=== PATIENT | female | born 1975 | race Caucasian/White ===

== ENCOUNTER 2016-07-03 11:48 | Emergency (ER) | payer MEDICAID ==
--- NOTE | 2016-07-03 11:55 | EDPHY ---
H & P Stated Complaint: Lap hyst Jun 10 at [facility];vag bleeding x 1 wk (spotting today ) HPI/ROS: HPI CHIEF COMPLAINT: vaginal bleeding, pelvic pain, status post hysterectomy HISTORY OF PRESENT ILLNESS: This patient very pleasant 41-year-old female significant past medical history for pulmonary embolism on Xarelto, she presents to the emergency room for pelvic pain and vaginal bleeding. Patient states that on June 10 she had a laparoscopic hysterectomy by Dr. Ahumada at [facility]. This was then subsequently complicated by pulmonary embolism. She is on Xarelto. She presents to the emergency room today with vaginal bleeding that she describes as light spotting. Patient tells me that she did have vaginal bleeding after laparoscopic hysterectomy however this resolved and then on Friday she developed significant vaginal bleeding with 1 pad per hour it has since decreased. She now only complains of light vaginal spotting. She also complains of lower pelvic cramping and pain. She is out of pain medicine status post her surgery. She did call her OBGYN could not get an appointment with them so decided come here to the emergency room Past Medical History: Pulmonary embolisms on Xarelto Past Surgical History: Recent laparoscopic hysterectomy Social History: Denies use of drugs alcohol tobacco products Family History: noncontributory ROS REVIEW OF SYSTEMS: A comprehensive 10 point review of systems is otherwise negative aside from elements mentioned in the history of present illness. Exam Constitutional triage nursing summary reviewed, vital signs reviewed, awake/ alert. Eyes normal conjunctivae and sclera, EOMI, PERRLA. HENT normal inspection, atraumatic, moist mucus membranes, no epistaxis, neck supple/ no meningismus, no raccoon eyes. Respiratory clear to auscultation bilaterally, normal breath sounds, no respiratory distress, no wheezing. Cardiovascular rate normal, regular rhythm, no murmur, no edema, distal pulses normal. Gastrointestinal very mild tenderness to palpation suprapubic region, soft, no rebound, no guarding, normal bowel sounds, no distension, no pulsatile mass. Genitourinary no CVA tenderness. Musculoskeletal no midline vertebral tenderness, full range of motion, no calf swelling, no tenderness of extremities, no meningismus, good pulses, neurovascularly intact. Skin pink, warm, & dry, no rash, skin atraumatic. Neurologic awake, alert and oriented x 3, AAOx3, moves all 4 extremities equally, motor intact, sensory intact, CN II-XII intact, normal cerebellar, normal vision, normal speech. Psychiatric normal mood/affect. Heme/Lymph/Immune no lymphadenopathy. Differential Diagnosis: Includes but is not limited to in a particular order dysfunctional bleeding, cervical cuff bleeding on Xarelto, anemia Medical Decision Making: This patient had an IV established will obtain blood work including coags, check an H&H, she will be placed on full monitor. She received IV fluids, nausea medicine pain medicine. Will do a pelvic ultrasound. Re-evaluation: Ultrasound of the pelvis. The results of the study are this shows small amount of free fluid at the vaginal cuff otherwise unremarkable. There is an incidental finding as well in the right rectus month muscle there is a mass it could be a desmoid tumor. I discussed the results of this study with the radiologist Dr. Moore. 1408: re-evaluation at this time this patient is resting comfortably no acute distress. Ultrasound has been reviewed. Blood work reviewed. H&H stable. She has not had any significant vaginal bleeding here. Will touch base with her OBGYN for follow-up. She is on Xarelto her INR is 2.0. This may be contributing to her vaginal bleeding she is hemodynamically stable not having any brisk bleeding here. 1435: I did re-evaluate this patient she is resting comfortably no for evidence of significant bleeding here. I did go over her ultrasound results. She understands follow-up with her OBGYN. She also understands she has brisk vaginal bleeding more than 1 pad per hour given that she is on Xarelto she needs return immediately to the ER. Blood work has been reviewed her INR is 2. H&H were stable. Her blood pressure stable. No evidence of significant bleeding here. She is agreeable for discharge. Spoke with Dr. Key they plan on seeing this patient tomorrow. Given that she is hemodynamically stable and having no active bleeding or hemorrhaging they feel comfortable allowing her going home with follow up in clinic tomorrow with Dr. Ahumada. Patient does understand return to the ER she develops worsening symptoms questions or concerns. Source: Patient - Personal History LMP (Females 10-55): Hysterectomy Current Tetanus Diphtheria and Acellular Pertussis (TDAP): Yes Tetanus Vaccine Date: 2006 - Medical/Surgical History Hx Asthma: Yes Hx Chronic Respiratory Disease: No Hx Diabetes: No Hx Cardiac Disease: No Hx Renal Disease: No Hx Cirrhosis: No Hx Alcoholism: No Hx HIV/AIDS: No Hx Splenectomy or Spleen Trauma: No Other PMH: PMH: asthma, pulmonary embolism; ovarian cysts, anxiety. PSH: c- sectionsx2, jaw. Lap hyst 06/10/16 - Social History Smoking Status: Former smoker Constitutional: Initial Vital Signs Temperature (C) 37.1 C 07/03/16 11:49 Heart Rate 92 07/03/16 11:49 Respiratory Rate 18 07/03/16 11:49 Blood Pressure 141/88 H 07/03/16 11:49 O2 Sat (%) 98 07/03/16 11:49 O2 Delivery Mode Room Air Allergies/Adverse Reactions: hydrocodone bitartrate [From Vicodin] Allergy (Severe, Verified 07/03/16 11:49) itching, sob Penicillins Allergy (Mild, Verified 07/03/16 11:49) Unknown pneumococcal vaccine [Pneumococcal Vaccine] Allergy (Verified 07/03/16 11:49) FLU VACCINE Allergy (Uncoded 01/03/15 01:32) Home Medications: Medication Instructions Recorded Albuterol [Proventil Inhaler HFA 1 - 2 puffs IH Q4 PRN 05/20/12 (*)] Citalopram Hydrobromide 40 mg PO DAILY 05/22/12 [Citalopram HBr 40 MG] Rivaroxaban [Xarelto 10mg (*)] 10 mg PO 07/03/16 oxyCODONE/APAP 5/325 [Percocet 1 - 2 tab PO Q4H PRN #20 tab 07/03/16 5/325 (*)] Medical Decision Making - Data Points Laboratory Results: Laboratory Results 07/03/16 12:05 07/03/16 12:05 07/03/16 12:05 WBC 5.82 10^3/uL (3.80-9.50) RBC 4.48 10^6/uL (4.18-5.33) Hgb 14.2 g/dL (12.6-16.3) Hct 41.1 % (38.0-47.0) MCV 91.7 fL (81.5-99.8) MCH 31.7 pg (27.9-34.1) MCHC 34.5 g/dL (32.4-36.7) RDW 12.2 % (11.5-15.2) Plt Count 290 10^3/uL (150-400) MPV 9.2 fL (8.7-11.7) Neut % (Auto) 58.6 % (39.3-74.2) Lymph % (Auto) 28.5 % (15.0-45.0) Rice % (Auto) 6.7 % (4.5-13.0) Eos % (Auto) 4.8 % (0.6-7.6) Baso % (Auto) 0.9 % (0.3-1.7) Nucleat RBC Rel Count 0.0 % (0.0-0.2) Absolute Neuts (auto) 3.41 10^3/uL (1.70-6.50) Absolute Lymphs (auto) 1.66 10^3/uL (1.00-3.00) Absolute Monos (auto) 0.39 10^3/uL (0.30-0.80) Absolute Eos (auto) 0.28 10^3/uL (0.03-0.40) Absolute Basos (auto) 0.05 10^3/uL (0.02-0.10) Absolute Nucleated RBC 0.00 10^3/uL (0-0.01) Immature Gran % 0.5 % (0.0-1.1) Immature Gran # 0.03 10^3/uL (0.00-0.10) PT 23.6 H SEC (12.0-15.0) INR 2.09 H (0.83-1.16) APTT 38.1 H SEC (23.0-38.0) Sodium 142 mEq/L (134-144) Potassium 3.8 mEq/L (3.5-5.2) Chloride 105 mEq/L (97-110) Carbon Dioxide 27 mEq/l (22-31) Anion Gap 10 mEq/L (8-16) BUN 9 mg/dL (7-23) Creatinine 0.7 mg/dL (0.6-1.0) Estimated GFR > 60 Glucose 78 mg/dL (70-100) Calcium 9.1 mg/dL (8.5-10.4) Urine Color PALE YELLOW Urine Appearance CLEAR Urine pH 6.0 (5.0-7.5) Ur Specific Meno 1.004 (1.002-1.030) Urine Protein NEGATIVE (NEGATIVE) Urine Ketones NEGATIVE (NEGATIVE) Urine Blood 1+ H (NEGATIVE) Urine Nitrate NEGATIVE (NEGATIVE) Urine Bilirubin NEGATIVE (NEGATIVE) Urine Urobilinogen NEGATIVE EU (0.2-1.0) Ur Leukocyte Esterase NEGATIVE (NEGATIVE) Urine RBC 1-3 /hpf (0-3) Urine WBC 1-3 /hpf (0-3) Ur Epithelial Cells TRACE /lpf (NONE-1+) Urine Bacteria 2+ H /hpf (NONE SEEN) Urine Mucus TRACE /lpf (NONE-1+) Ur Culture Indicated? NOT INDICATED (NI) Urine Glucose NEGATIVE (NEGATIVE) Medications Given: Discontinued Medications Fentanyl (Sublimaze) 50 mcg IVP EDNOW ONE Stop: 07/03/16 12:04 Last Admin: 07/03/16 12:32 Dose: 50 mcg Hydromorphone HCl (Dilaudid) 0.5 mg IVP EDNOW ONE Stop: 07/03/16 12:51 Last Admin: 07/03/16 12:57 Dose: 0.5 mg Sodium Chloride (Ns) 1,000 mls @ 0 mls/hr IV ONCE ONE PRN Reason: Wide Open Stop: 07/03/16 12:04 Last Admin: 07/03/16 12:32 Dose: 1,000 mls Ondansetron HCl (Zofran) 4 mg IVP EDNOW ONE Stop: 07/03/16 12:34 Last Admin: 07/03/16 12:50 Dose: 4 mg Departure - Departure Disposition: Home, Routine, Self-Care Clinical Impression: Vaginal bleeding, Pelvic pain Condition: Good Instructions: Pelvic Pain in Women (ED) Additional Instructions: 1. Return to the emergency room if he develops any worsening symptoms questions or concerns . 2. I do recommend that he follow up with her OBGYN. Referrals: Amy Durand DO [Primary Care Provider] - As per Instructions Prescriptions: oxyCODONE/APAP 5/325 [Percocet 5/325 (*)] 1 - 2 tab PO Q4H PRN #20 tab PRN Reason: Pain, Severe
[2016-07-03] MEDS ORDERED: fentaNYL 100 MCG/2 ML INJ IVP ONE (12:03)
[2016-07-03] MEDS ORDERED: NS 1,000 ML IV ONE (12:03)
[2016-07-03 12:25] LABS: % IMMATURE GRANULYOCYTES 0.5 % (0.0-1.1); ABSOLUTE IMMATURE GRANULOCYTES 0.03 10^3/uL (0.00-0.10); ADD DIFF? NO; ADD MORPH? NO; ADD SCAN? NO; ATYPICAL LYMPHOCYTE FLAG 10 (0-99); FRAGMENT RBC FLAG 0 (0-99); HEMATOCRIT 41.1 % (38.0-47.0); HEMOGLOBIN 14.2 g/dL (12.6-16.3); LEFT SHIFT FLG 0 (0-99); LIPEMIA HEMOLYSIS FLAG 90 (0-99); MEAN CELL HEMOGLOBIN 31.7 pg (27.9-34.1); MEAN CELL HEMOGLOBIN CONCENTR. 34.5 g/dL (32.4-36.7); MEAN CELL VOLUME 91.7 fL (81.5-99.8); MEAN PLATELET VOLUME 9.2 fL (8.7-11.7); PLATELET CLUMPS FLAG 10 (0-99); PLATELET COUNT 290 10^3/uL (150-400); RED BLOOD CELL COUNT 4.48 10^6/uL (4.18-5.33); RED CELL DISTRIBUTION WIDTH 12.2 % (11.5-15.2)
[2016-07-03 12:27] LABS: COLOR PALE YELLOW; LEUKOCYTE ESTERASE,URINE NEGATIVE (NEGATIVE); NITRITE,URINE NEGATIVE (NEGATIVE)
[2016-07-03] MEDS ORDERED: ONDANSETRON 4 MG/2 ML VIAL ONE (12:27)
[2016-07-03] MEDS ORDERED: ONDANSETRON 4 MG/2 ML VIAL IVP ONE (12:33)
[2016-07-03 12:35] LABS: BACTERIA 2+ /hpf (NONE SEEN); MUCUS TRACE /lpf (NONE-1+)
[2016-07-03 12:38] LABS: INR 2.09 (0.83-1.16); PROTIME(PATIENT) 23.6 SEC (12.0-15.0)
[2016-07-03 12:39] LABS: APTT 38.1 SEC (23.0-38.0)
[2016-07-03 12:49] LABS: ANION GAP 10 mEq/L (8-16); CALCIUM 9.1 mg/dL (8.5-10.4); CARBON DIOXIDE 27 mEq/l (22-31); CHLORIDE 105 mEq/L (97-110); CREATININE 0.7 mg/dL (0.6-1.0); GLOMERULAR FILTRATION RATE > 60; GLUCOSE 78 mg/dL (70-100); POTASSIUM 3.8 mEq/L (3.5-5.2); SODIUM 142 mEq/L (134-144)
[2016-07-03] MEDS ORDERED: HYDROmorphONE/DILAUDID 1 MG/ML SYR IVP ONE (12:50)
--- NOTE | 2016-07-03 14:47 | US ---
Pelvic Ultrasound Indication: Vaginal bleeding. Recent vaginal hysterectomy. Technique: Transabdominal and transvaginal imaging. Comparison: Pelvic sonogram dated April 14, 2016. Findings: Transabdominal Imaging: The uterus is surgically absent. A hypoechoic soft tissue nodule with several small cysts along the periphery resides in the right rectus muscle anterior to the urinary bladder. Soft tissue measures 3.1 x 1.9 x 1.7 cm and has minimal internal blood flow on color Doppler imaging. Transvaginal Imaging: Trace simple free fluid resides at the apex of vaginal cuff. No organized fluid collection. The uterus is surgically absent. The right ovary is normal size with small peripheral follicles and normal blood flow on Color Doppler imaging. The right ovary measures 3.3 x 2.9 x 2.3 cm. Left ovary is not visualized. No adnexal mass . Impression: 1. Trace free fluid in the pelvis. No organized hematoma or fluid collection. 2. Normal right ovary. Left ovary is not visualized. 3. 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 Recommend [employer] follow up. Comment: Results were discussed with Dr. Joshua Sanchez shortly after study completion on July 03, 2016.
[2016-07-03 15:04] VITALS: BP 122/78; PULSE 84; RESP 14; TEMP 97.7; O2SAT 94
== END 2016-07-03 15:08 | disposition home or self-care (01) ==
DX: N93.8 Other specified abnormal uterine and vaginal bleeding (principal); R10.2 Pelvic and perineal pain; J45.909 Unspecified asthma, uncomplicated; Z87.891 Personal history of nicotine dependence; Z90.710 Acquired absence of both cervix and uterus; Z79.01 Long term (current) use of anticoagulants
CPT/HCPCS: 96374; J1170; J2405; J3010

== ENCOUNTER 2016-09-08 20:09 | Emergency (ER) | payer MEDICAID ==
[2016-09-08 20:15] VITALS: TEMP 96.8
[2016-09-08] MEDS ORDERED: METOCLOPRAMIDE 10 MG/2 ML VIAL IVP ONE (20:33)
--- NOTE | 2016-09-08 20:35 | EDPHY ---
H & P Stated Complaint: XIONG similar to hx migraines Time Seen by Provider: 09/08/16 20:25 HPI/ROS: CHIEF COMPLAINT: Headache HISTORY OF PRESENT ILLNESS: The patient presents to the ED with a 3 day history of headache. The patient states the headache feels like a typical migraine for her however it has lasted an uncharacteristic amount of time. The patient denies any history of fall or trauma. The patient is currently anticoagulated with Xarelto for history of PE. The patient did undergo a hysterectomy complicated by pulmonary embolism in June of this year. The patient denies asymmetric calf pain or swelling currently. The patient did have some pain in her legs earlier today which resolved. The patient does have a history of a neuropathic pain syndrome which was unexplained and self-limited earlier this year. The patient currently complains of a 5/10 headache. She denies focal numbness or weakness. The patient denies fever or infectious symptoms. REVIEW OF SYSTEMS: A comprehensive 10 point review of systems is otherwise negative aside from elements mentioned in the history of present illness. Source: Patient Exam Limitations: No limitations - Personal History LMP (Females 10-55): Hysterectomy Current Tetanus/Diphtheria Vaccine: No Current Tetanus Diphtheria and Acellular Pertussis (TDAP): No Tetanus Vaccine Date: 2006 - Medical/Surgical History Hx Asthma: Yes Hx Chronic Respiratory Disease: No Hx Diabetes: No Hx Cardiac Disease: No Hx Renal Disease: No Hx Cirrhosis: No Hx Alcoholism: No Hx HIV/AIDS: No Hx Splenectomy or Spleen Trauma: No Other PMH: PMH: asthma, pulmonary embolism x2; ovarian cysts, anxiety. PSH: c- sections x2, jaw, Lap hyst 06/10/16 - Social History Smoking Status: Former smoker - Physical Exam Exam: General Appearance: Alert, no distress Eyes: Pupils equal and round no pallor or injection ENT, Mouth: Mucous membranes moist Respiratory: There are no retractions, lungs are clear to auscultation Cardiovascular: Regular rate and rhythm Gastrointestinal: Abdomen is soft and nontender, no masses, bowel sounds normal Neurological: A&O, normal motor function, normal sensory exam, normal cranial nerves Skin: Warm and dry, no rashes Musculoskeletal: Neck is supple nontender, specifically no meningeal symptoms Extremities: symmetrical, full range of motion Constitutional: Initial Vital Signs Temperature (C) 36 C 09/08/16 20:10 Heart Rate 96 09/08/16 20:10 Respiratory Rate 18 09/08/16 20:10 O2 Sat (%) 96 09/08/16 20:10 O2 Delivery Mode Room Air Allergies/Adverse Reactions: hydrocodone bitartrate [From Vicodin] Allergy (Severe, Verified 07/03/16 11:49) itching, sob Penicillins Allergy (Mild, Verified 07/03/16 11:49) Unknown pneumococcal vaccine [Pneumococcal Vaccine] Allergy (Verified 07/03/16 11:49) FLU VACCINE Allergy (Uncoded 01/03/15 01:32) Home Medications: Medication Instructions Recorded Albuterol [Proventil Inhaler HFA 1 - 2 puffs IH Q4 PRN 05/20/12 (*)] Rivaroxaban [Xarelto 10mg (*)] 10 mg PO 07/03/16 Cymbalta 09/08/16 Medical Decision Making - Diagnostics Imaging: Imaging Impressions Head CT 09/08/16 20:33 Impression: Normal brain. No intracranial hemorrhage, mass, or sinus disease. Findings discussed with emergency department physician, Kevin Bartholomew MD on September 08, 2016 at 9:[address] head without contrast: Negative for acute intracranial hemorrhage or other explanation for headache. Images reviewed by myself and discussed with radiologist Dr. Jovan Moore. ED Course/Re-evaluation: The patient presents to the ED with symptoms consistent with a migraine however more severe and protracted than she typically has experienced. Given the severity and the fact she is anticoagulated, an emergent noncontrast head CT scan was ordered to exclude intracranial hemorrhage. The patient was taken for a stat CT scan which fortunately demonstrates no evidence of intracranial hemorrhage or other serious findings. The patient did have an IV established. She received IV Benadryl and Reglan for presumptive migraine syndrome. The patient is noted to be neurologically intact. She is afebrile without meningeal symptoms. The patient was re-evaluated at 10:30 p.m.. She reports her headache is entirely resolved. At this point time I do feel she can be discharged home with a resolved migraine headache. The patient is discharged home with customary aftercare instructions and return precautions. Differential Diagnosis: Differential diagnosis considered includes intracranial hemorrhage, meningitis, tension headache, migraine syndrome - Data Points Medications Given: Discontinued Medications Diphenhydramine HCl (Benadryl Injection) 50 mg IVP EDNOW ONE Stop: 04/09/17 20:34 Last Admin: 09/08/16 21:04 Dose: 50 mg Metoclopramide HCl (Reglan Injection) 10 mg IVP EDNOW ONE Stop: 09/08/16 20:34 Last Admin: 09/08/16 21:04 Dose: 10 mg Departure - Departure Disposition: Home, Routine, Self-Care Clinical Impression: Migraine Condition: Good Instructions: Acute Headache (ED) Additional Instructions: 1. Please follow-up with your primary care provider for any ongoing symptoms. 2. Please return to the ED for any numbness, weakness, worsening symptoms. Referrals: MONIQUE BRYAN [Other] - As per Instructions
[2016-09-08 22:06] VITALS: BP 122/82; PULSE 85; RESP 16; O2SAT 98
== END 2016-09-08 22:34 | disposition home or self-care (01) ==
DX: G43.909 Migraine, unspecified, not intractable, without status migrainosus (principal); J45.909 Unspecified asthma, uncomplicated; Z87.891 Personal history of nicotine dependence
CPT/HCPCS: 96374; J1200; J2765

== ENCOUNTER 2016-10-03 17:19 | Emergency (ER) | payer MEDICAID ==
--- NOTE | 2016-10-03 17:41 | CPEKG ---
Heart Rate: 96 RR Interval: 625 P-R Interval: 136 QRSD Interval: 82 QT Interval: 380 QTC Interval: 481 P Bushnell: 61 QRS Bushnell: -9 T Wave Bushnell: 53 EKG Severity - NORMAL ECG - EKG Impression: SINUS RHYTHM Electronically Signed By: Melquiades Wasserman 03-Oct-2016 20:26:03
--- NOTE | 2016-10-03 17:53 | EDPHY ---
H & P Stated Complaint: Chest tightness x 2 wks Time Seen by Provider: 10/03/16 17:53 - Personal History LMP (Females 10-55): Hysterectomy Current Tetanus Diphtheria and Acellular Pertussis (TDAP): Yes Tetanus Vaccine Date: 2006 - Medical/Surgical History Hx Asthma: Yes Hx Chronic Respiratory Disease: No Hx Diabetes: No Hx Cardiac Disease: No Hx Renal Disease: No Hx Cirrhosis: No Hx Alcoholism: No Hx HIV/AIDS: No Hx Splenectomy or Spleen Trauma: No Other PMH: PMH: asthma, pulmonary embolism x2; ovarian cysts, anxiety. PSH: c- sections x2, jaw, Lap hyst 06/10/16 - Social History Smoking Status: Former smoker Constitutional: Initial Vital Signs Temperature (C) 36.9 C 10/03/16 17:23 Heart Rate 96 10/03/16 17:23 Respiratory Rate 16 10/03/16 17:23 Blood Pressure 140/108 H 10/03/16 17:23 O2 Sat (%) 98 10/03/16 17:23 O2 Delivery Mode Room Air Allergies/Adverse Reactions: hydrocodone bitartrate [From Vicodin] Allergy (Intermediate, Verified 10/03/16 17:23) itching, sob Penicillins Allergy (Mild, Verified 10/03/16 17:23) Unknown pneumococcal vaccine [Pneumococcal Vaccine] Allergy (Verified 10/03/16 17:23) FLU VACCINE Allergy (Uncoded 01/03/15 01:32) Home Medications: Medication Instructions Recorded Albuterol [Proventil Inhaler HFA 1 - 2 puffs IH Q4 PRN 05/20/12 (*)] Rivaroxaban [Xarelto 10mg (*)] 10 mg PO 07/03/16 Cymbalta 09/08/16 Lisinopril 5 mg PO DAILY06 #30 tablet 10/03/16 Medical Decision Making - Diagnostics Imaging Results: Imaging Impressions Chest X-Ray 10/03/16 17:56 Impression: Stable x5 months. No indirect evidence for pulmonary embolism on the chest x-ray. ED Course/Re-evaluation: CHIEF COMPLAINT: Chest tightness, hypertension. HISTORY OF PRESENT ILLNESS: The patient is a 41-year-old female who presents with hypertension and intermittent chest tightness. She is currently anticoagulated on Xarelto for a history of pulmonary emboli. She was being seen at the cancer center for pulmonary embolism recheck and was sent here after her blood pressure was measured high. She admits feeling flushed and diaphoretic. She denies shortness of breath, cough, or other complaints. REVIEW OF SYSTEMS: A 10 point review of systems was performed and is negative with the exception of the elements mentioned in the history of present illness. PHYSICAL EXAM: HR, BP, O2 Sat, RR. Temp noted General Appearance: Alert, well hydrated, appropriate, and non-toxic appearing. Head: Atraumatic without scalp tenderness or obvious injury Eyes: Pupils equal, round, reactive to light and accommodation, EOMI, no trauma , no injection. Ears: Clear bilaterally, no perforation, normal landmarks Nose: Atraumatic, no rhinorrhea, clear. Throat: There is no erythema or exudates, no lesions, normal tonsils, mucus membranes moist. Neck: Supple, 2+ carotid upstroke, nontender, no lymphadenopathy. Respiratory: No retractions, no distress, no wheezes, and no accessory muscle use. Lungs are clear to auscultation bilaterally. Cardiovascular: Regular rate and rhythm, no murmurs, rubs, or gallops. Bilateral carotid, radial, dorsalis pedis, and posterior tibial pulses intact. Good capillary refill all extremities. Gastrointestinal: Abdomen is soft, nontender, non-distended, no masses, no rebound, no guarding, no peritoneal signs. Musculoskeletal: Normal active ROM of all extremities, atraumatic. Neurological: Alert, appropriate, and interactive. The patient has normal DTRs and non-focal cranial nerves, motor, sensory, and cerebellar exam. Skin: No rashes, good turgor, no nodules on palpation. Past medical history: Pulmonary embolism, asthma, anxiety. Past surgical history: Hysterectomy, . Family history: N/A. Social history: Does not abuse alcohol or drugs. DIAGNOSTICS/PROCEDURES/CRITICAL CARE TIME: The 12 lead EKG was interpreted by myself. See hard copy and/or "tracemaster" electronic copy for interpretation. Study: PA and Lateral Chest X-ray Indication: Chest pain Results: I viewed the images myself on the PACS system. See Image Reports section for official radiologist report. DIFFERENTIAL DIAGNOSIS: The differential diagnosis for the patient's chest pain included but was not limited to myocardial ischemia, pulmonary embolus, chest wall pain, pleural inflammation, and pulmonary infectious causes. MEDICAL DECISION MAKIN-year-old female with a history of PEs presents with chest tightness and hypertension. She is currently on Xarelto for PE treatment. She is complaining of hot flashes as well and I feel that there is a hormone component to her story. She had a hysterectomy but is not undergoing hormone replacement therapy due to her history of blood clots. Her blood pressure on presentation is 140/ 108. An IV was established and labs ordered including cardiac enzymes. EKG, chest x-ray ordered. Chest x-ray unchanged from 5 weeks prior. Her lab work is unremarkable. I have started her on 5mg Lisinopril. She will take her blood pressures twice per day and follow up with her primary care provider. I discussed this plan with her and she is in agreement. - Data Points Laboratory Results: Laboratory Results 10/03/16 17:45 10/03/16 Unknown 10/03/16 10/03/16 Unknown 17:45 WBC 6.57 10^3/uL 10^3/uL (3.80-9.50) RBC 4.55 10^6/uL 10^6/uL (4.18-5.33) Hgb 14.1 g/dL g/dL (12.6-16.3) Hct 40.5 % % (38.0-47.0) MCV 89.0 fL fL (81.5-99.8) MCH 31.0 pg pg (27.9-34.1) MCHC 34.8 g/dL g/dL (32.4-36.7) RDW 12.6 % % (11.5-15.2) Plt Count 251 10^3/uL 10^3/uL (150-400) MPV 9.2 fL fL (8.7-11.7) Neut % (Auto) 58.4 % % (39.3-74.2) Lymph % (Auto) 30.4 % % (15.0-45.0) Gladwin % (Auto) 8.5 % % (4.5-13.0) Eos % (Auto) 1.8 % % (0.6-7.6) Baso % (Auto) 0.6 % % (0.3-1.7) Nucleat RBC Rel Count 0.0 % % (0.0-0.2) Absolute Neuts (auto) 3.83 10^3/uL 10^3/uL (1.70-6.50) Absolute Lymphs (auto) 2.00 10^3/uL 10^3/uL (1.00-3.00) Absolute Monos (auto) 0.56 10^3/uL 10^3/uL (0.30-0.80) Absolute Eos (auto) 0.12 10^3/uL 10^3/uL (0.03-0.40) Absolute Basos (auto) 0.04 10^3/uL 10^3/uL (0.02-0.10) Absolute Nucleated RBC 0.00 10^3/uL 10^3/uL (0-0.01) Immature Gran % 0.3 % % (0.0-1.1) Immature Gran # 0.02 10^3/uL 10^3/uL (0.00-0.10) Sodium 139 mEq/L mEq/L (134-144) Potassium 3.7 mEq/L mEq/L (3.5-5.2) Chloride 104 mEq/L mEq/L (97-110) Carbon Dioxide 25 mEq/l mEq/l (22-31) Anion Gap 10 mEq/L mEq/L (8-16) BUN 9 mg/dL mg/dL (7-23) Creatinine 0.7 mg/dL mg/dL (0.6-1.0) Estimated GFR > 60 Glucose 84 mg/dL mg/dL (70-100) Calcium 9.6 mg/dL mg/dL (8.5-10.4) Troponin I < 0.012 ng/mL ng/mL (0-0.034) Departure - Departure Disposition: Home, Routine, Self-Care Clinical Impression: Hypertension Qualifiers: Hypertension type: unspecified secondary hypertension Qualified Code(s): I15.9 - Secondary hypertension, unspecified Condition: Good Instructions: Hypertension (ED) Additional Instructions: Take Lisinopril as prescribed. Take your blood pressure in the mornings and evenings and record the readings. Follow up with your primary care provider and provide them with the list of your blood pressures. Return for any serious worsening of condition. Referrals: CHOCO BRYAN [Other] - As per Instructions Prescriptions: Lisinopril 5 mg PO DAILY06 #30 tablet Report Scribed for: Melquiades Wasserman Report Scribed by: Rakesh Batres Date of Report: 10/03/16 Time of Report: 18:21
[2016-10-03 18:02] LABS: % IMMATURE GRANULYOCYTES 0.3 % (0.0-1.1); ABSOLUTE IMMATURE GRANULOCYTES 0.02 10^3/uL (0.00-0.10); ADD DIFF? NO; ADD MORPH? NO; ADD SCAN? NO; ATYPICAL LYMPHOCYTE FLAG 10 (0-99); FRAGMENT RBC FLAG 0 (0-99); HEMATOCRIT 40.5 % (38.0-47.0); HEMOGLOBIN 14.1 g/dL (12.6-16.3); LEFT SHIFT FLG 0 (0-99); LIPEMIA HEMOLYSIS FLAG 90 (0-99); MEAN CELL HEMOGLOBIN CONCENTR. 34.8 g/dL (32.4-36.7); MEAN PLATELET VOLUME 9.2 fL (8.7-11.7); PLATELET CLUMPS FLAG 0 (0-99); PLATELET COUNT 251 10^3/uL (150-400); RED BLOOD CELL COUNT 4.55 10^6/uL (4.18-5.33); RED CELL DISTRIBUTION WIDTH 12.6 % (11.5-15.2)
[2016-10-03 18:14] LABS: ANION GAP 10 mEq/L (8-16); CALCIUM 9.6 mg/dL (8.5-10.4); CARBON DIOXIDE 25 mEq/l (22-31); CHLORIDE 104 mEq/L (97-110); CREATININE 0.7 mg/dL (0.6-1.0); GLOMERULAR FILTRATION RATE > 60; GLUCOSE 84 mg/dL (70-100); POTASSIUM 3.7 mEq/L (3.5-5.2); SODIUM 139 mEq/L (134-144)
[2016-10-03 18:26] LABS: TROPONIN I < 0.012 ng/mL (0-0.034)
[2016-10-03 19:03] VITALS: BP 137/96; PULSE 96; RESP 18; TEMP 97.9; O2SAT 96
[2016-10-04] MEDS ORDERED: LISINOPRIL 5 MG TAB PO ONE (18:21)
== END 2016-10-03 19:03 | disposition home or self-care (01) ==
DX: I10 Essential (primary) hypertension (principal); J45.909 Unspecified asthma, uncomplicated; Z87.891 Personal history of nicotine dependence

== ENCOUNTER 2016-12-26 10:58 | Emergency (ER) | payer MEDICAID ==
--- NOTE | 2016-12-26 11:11 | EDPHY ---
H & P Stated Complaint: R posterior knee [place] after hiking x9 days; HX clots; +swelling , warm Time Seen by Provider: 12/26/16 11:04 HPI/ROS: CHIEF COMPLAINT: Right leg pain HISTORY OF PRESENT ILLNESS: Patient is a 41-year-old female with a history DVT currently on Eliquis as well as asthma and anxiety who comes to the emergency department requesting an ultrasound for pain in her posterior lower right thigh. No swelling or erythema. Normal pulses. No tingling. No weakness. She denies recent traumas. She switched from Xarelto to Eliquis about a month ago because she had fluid retention. She states that that has not improved. She denies chest pain or shortness of breath. REVIEW OF SYSTEMS: Constitutional: denies: chills, fever, recent illness, recent injury EENTM: denies: blurred vision, double vision, nose congestion Respiratory: denies: cough, shortness of breath Cardiac: denies: chest pain, irregular heart rate, lightheadedness, palpitations Gastrointestinal/Abdominal: denies: abdominal pain, diarrhea, nausea, vomiting, blood streaked stools Genitourinary: denies: dysuria, frequency, hematuria, pain Musculoskeletal: See HPI Skin: denies: lesions, rash, jaundice, bruising Neurological: denies: headache, numbness, paresthesia, tingling, dizziness, weakness Hematologic/Lymphatic: denies: blood clots, easy bleeding, easy bruising Immunologic/allergic: denies: HIV/AIDS, transplant EXAM: GENERAL: Well-appearing, well-nourished and in no acute distress. HEAD: Atraumatic, normocephalic. EYES: Pupils equal round and reactive to light, extraocular movements intact, sclera anicteric, conjunctiva are normal. ENT: TMs normal, nares patent, oropharynx clear without exudates. Moist mucous membranes. NECK: Normal range of motion, supple without lymphadenopathy or JVD. LUNGS: Breath sounds clear to auscultation bilaterally and equal. No wheezes rales or rhonchi. HEART: Regular rate and rhythm without murmurs, rubs or gallops. ABDOMEN: Soft, nontender, normoactive bowel sounds. No guarding, no rebound. No masses appreciated. BACK: No CVA tenderness, no spinal tenderness, step-offs or deformities EXTREMITIES: Pain behind right lower thigh, no tenderness. No erythema. No cords. Strong pulses. Normal sensation , movement and ambulation NEUROLOGICAL: Cranial nerves II through XII grossly intact. Normal speech, normal gait. 5/5 strength, normal movement in all extremities, normal sensation PSYCH: Normal mood, normal affect. SKIN: Warm, dry, normal turgor, no visible rashes or lesions. Source: Patient Exam Limitations: No limitations - Personal History LMP (Females 10-55): Hysterectomy Current Tetanus/Diphtheria Vaccine: Yes Tetanus Vaccine Date: 2006 - Medical/Surgical History Hx Asthma: Yes Hx Chronic Respiratory Disease: No Hx Diabetes: No Hx Cardiac Disease: No Hx Renal Disease: No Hx Cirrhosis: No Hx Alcoholism: No Hx HIV/AIDS: No Hx Splenectomy or Spleen Trauma: No Other PMH: PMH: asthma, pulmonary embolism; ovarian cysts, anxiety. PSH: c- sections x2, jaw, Lap hyst 06/10/16 - Family History Significant Family History: No pertinent family hx - Social History Smoking Status: Former smoker Alcohol Use: Sober Drug Use: None Constitutional: Initial Vital Signs Temperature (C) 36.9 C 12/26/16 11:02 Heart Rate 84 12/26/16 11:02 Respiratory Rate 18 12/26/16 11:02 Blood Pressure 120/85 H 12/26/16 11:02 O2 Sat (%) 98 12/26/16 11:02 Allergies/Adverse Reactions: hydrocodone bitartrate [From Vicodin] Allergy (Intermediate, Verified 12/26/16 11:06) itching, sob Penicillins Allergy (Mild, Verified 12/26/16 11:06) Unknown pneumococcal vaccine [Pneumococcal Vaccine] Allergy (Verified 12/26/16 11:06) FLU VACCINE Allergy (Uncoded 01/03/15 01:32) Home Medications: Medication Instructions Recorded Citalopram 12/26/16 Eliquis 12/26/16 Medical Decision Making - Diagnostics Imaging Results: Imaging Impressions Extremity Venous Study 12/26/16 11:09 Impression: No deep vein thrombosis in the right lower extremity. No source for pain identified. Results called and discussed with SUZANNE WARNER MD, at 12/26/2016 11:56 Imaging: Discussed imaging studies w/ callisthenics instructor Radiologist ED Course/Re-evaluation: Patient is relieved with the ultrasound results. She declines further workup or testing at this time. She is eager to go home. We discussed indications for returning. Differential Diagnosis: Partial list of the Differential diagnosis considered include but were not limited to; DVT, thrombophlebitis, Morse cyst and although unlikely based on the history and physical exam, I also considered cellulitis, hematoma, ischemia. I discussed these differential diagnoses and the plan with the patient as well as the usual and expected course. The patient understands that the diagnosis is provisional and that in medicine we are not always correct and that further workup is often warranted. Usual and customary warnings were given. All of the patient's questions were answered. The patient was instructed to return to the emergency department should the symptoms at all worsen or return, otherwise to followup with the physician as we discussed. Departure - Departure Disposition: Home, Routine, Self-Care Clinical Impression: Leg pain, right Condition: Fair Instructions: Leg Pain (ED) Referrals: [facility],. [Primary Care Provider] - As per Instructions
[2016-12-26 11:20] VITALS: BP 120/85; PULSE 84; RESP 18; TEMP 98.4; O2SAT 98
== END 2016-12-26 11:59 | disposition home or self-care (01) ==
LOC: CED 10:58
DX: M79.604 Pain in right leg (principal); J45.909 Unspecified asthma, uncomplicated; Z79.01 Long term (current) use of anticoagulants; Z87.891 Personal history of nicotine dependence
CPT/HCPCS: 93971-PO

== ENCOUNTER 2017-02-10 08:22 | Outpatient (CLI) | payer MEDICAID ==
[2017-02-10] MEDS ORDERED: LIDOCAINE 1% 300 MG/30 ML SDV ONE (09:17)
[2017-02-10] MEDS ORDERED: MIDAZOLAM 2 MG/2 ML VIAL ONE (09:45)
[2017-02-10] MEDS ORDERED: NALOXONE HCL 0.4 MG/ML INJ ONE (09:45)
[2017-02-10] MEDS ORDERED: FLUMAZENIL 0.5 MG/5 ML MDV IVP ONE (09:45)
[2017-02-10] MEDS ORDERED: fentaNYL 100 MCG/2 ML INJ ONE (09:45)
[2017-02-10 12:31] VITALS: BP 102/64; O2SAT 98
[2017-02-10 12:52] VITALS: TEMP 97.7
[2017-02-10] MEDS ORDERED: OXYCODONE/APAP 5/325 TAB ONE (13:21)
== END 2017-02-10 12:30 | disposition home or self-care (01) ==
LOC: FIMAGING 08:22
PROC: 0WBF3ZX Excision of Abdominal Wall, Percutaneous Approach, Diagnostic (ICD-10-PCS; principal; 2017-02-10 11:27)
PROC: BW40ZZZ Ultrasonography of Abdomen (ICD-10-PCS; principal; 2017-02-10 11:27)
DX: R22.2 Localized swelling, mass and lump, trunk (principal); I10 Essential (primary) hypertension; Z86.711 Personal history of pulmonary embolism; Z86.718 Personal history of other venous thrombosis and embolism
CPT/HCPCS: J2250; J2310; J3010

== ENCOUNTER 2017-06-17 17:03 | Emergency (ER) | payer MEDICAID ==
[2017-06-17 17:12] VITALS: O2SAT 100
--- NOTE | 2017-06-17 18:13 | CPEKG ---
Heart Rate: 106 RR Interval: 566 P-R Interval: 144 QRSD Interval: 82 QT Interval: 364 QTC Interval: 484 P [place]: 67 QRS [place]: -60 T Wave [place]: 62 EKG Severity - ABNORMAL ECG - EKG Impression: SINUS TACHYCARDIA EKG Impression: LEFT ANTERIOR FASCICULAR BLOCK EKG Impression: ABNRM R PROG, CONSIDER ASMI OR LEAD PLACEMENT EKG Impression: SINUS TACHYCARDIA IS NEW IN COMPARISON TO PRIOR (NSR) Electronically Signed By: Florentino Haddad 22-Jun-2017 10:36:53
[2017-06-17 18:33] LABS: PLATELET COUNT 262 10^3/uL (150-400)
--- NOTE | 2017-06-17 19:53 | EDPHY ---
H & P Stated Complaint: tachycardia, hypertension HPI/ROS: Chief complaint: Chest discomfort History of present illness: This is a 41-year-old female who presents to the emergency department for evaluation of chest discomfort. She reports the onset of symptoms approximately 2 hr prior to arrival. She describes a pressure in her chest and discomfort radiating into the left arm. She has developed associated racing of the heart. She took her blood pressure at a supermarket and noted it to be in the 170s over 110s. She does not have a history of high blood pressure. She is feeling better here in the emergency department but symptoms have not resolved. She denies other associated signs or symptoms including no fevers, no cold symptoms, no shortness of breath, no pain or swelling in her legs. 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 This does not feel similar to previous presentations. Review of systems: A 10 point review of systems was obtained and other than described above was negative - Personal History LMP (Females 10-55): Hysterectomy Current Tetanus/Diphtheria Vaccine: Unsure Current Tetanus Diphtheria and Acellular Pertussis (TDAP): Unsure Tetanus Vaccine Date: 2006 - Medical/Surgical History Hx Asthma: Yes Hx Chronic Respiratory Disease: No Hx Diabetes: No Hx Cardiac Disease: No Hx Renal Disease: No Hx Cirrhosis: No Hx Alcoholism: No Hx HIV/AIDS: No Hx Splenectomy or Spleen Trauma: No Other PMH: PMH: asthma, pulmonary embolism; ovarian cysts, anxiety. PSH: c- sections x2, jaw surgery, Lap hyst 06/10/16 - Social History Smoking Status: Former smoker - Physical Exam Exam: General Appearance: Alert, nontoxic. Eyes: Pupils equal and round no pallor or injection. ENT, Mouth: Mucous membranes moist. Respiratory: There are no retractions, lungs are clear to auscultation. Cardiovascular: Regular rate and rhythm. Gastrointestinal: Abdomen is soft and non tender, no masses, bowel sounds normal. Neurological: Alert and oriented x4. Strength and sensation intact and symmetrical. Skin: Warm and dry, no rashes. Musculoskeletal: Neck is supple non tender. Extremities are symmetrical, full range of motion. Psychiatric: Patient is oriented X 3, there is no agitation. Constitutional: Initial Vital Signs Temperature (C) 36.5 C 06/17/17 17:08 Heart Rate 98 06/17/17 17:08 Respiratory Rate 16 06/17/17 17:08 Blood Pressure 138/94 H 06/17/17 17:08 O2 Sat (%) 100 06/17/17 17:08 O2 Delivery Mode Room Air O2 (L/minute) 1 Allergies/Adverse Reactions: hydrocodone bitartrate [From Vicodin] Allergy (Intermediate, Verified 06/17/17 17:07) itching, sob Penicillins Allergy (Mild, Verified 06/17/17 17:07) Unknown pneumococcal vaccine [Pneumococcal Vaccine] Allergy (Verified 06/17/17 17:07) FLU VACCINE Allergy (Uncoded 06/17/17 17:07) Home Medications: Medication Instructions Recorded Aspirin 06/17/17 Lexapro 06/17/17 Vyvanse 06/17/17 Medical Decision Making - Diagnostics Imaging Results: Imaging Impressions Chest X-Ray 06/17/17 19:08 Impression: Chest negative for acute cardiopulmonary abnormality. Imaging: I viewed and interpreted images myself ED Course/Re-evaluation: Patient is discussed with my secondary supervising physician Dr. Gustavo Sanchez. Patient presents to the emergency department for evaluation of chest discomfort. Presentation she is nontoxic. Mildly hypertensive otherwise vital signs are stable. Blood studies including D-dimer and troponin are unremarkable. EKG unremarkable. Chest x-ray unremarkable. Symptoms have nearly resolved on re-evaluation. Vital signs are stable. She has a low risk heart pathway score. She will be discharged home to follow up with her primary care doctor this week for recheck. Strict return precautions are given. Patient voiced understanding and agreement with plan. Differential Diagnosis: Included but not limited to cardiac dysrhythmia, ACS, pulmonary embolism, anxiety, musculoskeletal pain, hypertensive emergency - Data Points Laboratory Results: Laboratory Results 06/17/17 18:12 06/17/17 18:12 06/17/17 06/17/17 06/17/17 18:12 18:12 18:12 WBC RBC Hgb Hct MCV MCH MCHC RDW Plt Count MPV Neut % (Auto) Lymph % (Auto) [place] % (Auto) Eos % (Auto) Baso % (Auto) Nucleat RBC Rel Count Absolute Neuts (auto) Absolute Lymphs (auto) Absolute Monos (auto) Absolute Eos (auto) Absolute Basos (auto) Absolute Nucleated RBC Immature Gran % Immature Gran # D-Dimer 0.34 ug/mLFEU ug/mLFEU (0.00-0.50) Sodium 142 mEq/L mEq/L (135-145) Potassium 3.8 mEq/L mEq/L (3.5-5.2) Chloride 102 mEq/L mEq/L (97-110) Carbon Dioxide 23 mEq/l mEq/l (22-31) Anion Gap 17 mEq/L H mEq/L (8-16) BUN 11 mg/dL mg/dL (7-23) Creatinine 0.8 mg/dL mg/dL (0.6-1.0) Estimated GFR > 60 Glucose 113 mg/dL H mg/dL (70-100) Calcium 10.1 mg/dL mg/dL (8.5-10.4) Troponin I < 0.012 ng/mL ng/mL (0.000-0.034) Beta HCG, Qual NEGATIVE 06/17/17 18:12 WBC 6.86 10^3/uL 10^3/uL (3.80-9.50) RBC 4.78 10^6/uL 10^6/uL (4.18-5.33) Hgb 15.5 g/dL g/dL (12.6-16.3) Hct 43.5 % % (38.0-47.0) MCV 91.0 fL fL (81.5-99.8) MCH 32.4 pg pg (27.9-34.1) MCHC 35.6 g/dL g/dL (32.4-36.7) RDW 12.6 % % (11.5-15.2) Plt Count 262 10^3/uL 10^3/uL (150-400) MPV 9.3 fL fL (8.7-11.7) Neut % (Auto) 57.7 % % (39.3-74.2) Lymph % (Auto) 31.5 % % (15.0-45.0) [place] % (Auto) 8.5 % % (4.5-13.0) Eos % (Auto) 1.6 % % (0.6-7.6) Baso % (Auto) 0.6 % % (0.3-1.7) Nucleat RBC Rel Count 0.0 % % (0.0-0.2) Absolute Neuts (auto) 3.96 10^3/uL 10^3/uL (1.70-6.50) Absolute Lymphs (auto) 2.16 10^3/uL 10^3/uL (1.00-3.00) Absolute Monos (auto) 0.58 10^3/uL 10^3/uL (0.30-0.80) Absolute Eos (auto) 0.11 10^3/uL 10^3/uL (0.03-0.40) Absolute Basos (auto) 0.04 10^3/uL 10^3/uL (0.02-0.10) Absolute Nucleated RBC 0.00 10^3/uL 10^3/uL (0-0.01) Immature Gran % 0.1 % % (0.0-1.1) Immature Gran # 0.01 10^3/uL 10^3/uL (0.00-0.10) D-Dimer Sodium Potassium Chloride Carbon Dioxide Anion Gap BUN Creatinine Estimated GFR Glucose Calcium Troponin I Beta HCG, Qual Departure - Departure Disposition: Home, Routine, Self-Care Clinical Impression: Chest pain, HTN (hypertension) Condition: Good Instructions: Chest Pain (ED) Additional Instructions: Follow-up with your primary care doctor in 1-2 days for recheck without fail If symptoms worsen or new symptoms develop return to the emergency room for recheck Referrals: Mehnaz Hinton [Primary Care Provider] - As per Instructions
[2017-06-17 20:02] VITALS: BP 118/87; PULSE 92; RESP 18; TEMP 98.6
== END 2017-06-17 20:01 | disposition home or self-care (01) ==
DX: R07.9 Chest pain, unspecified (principal); I10 Essential (primary) hypertension; J45.909 Unspecified asthma, uncomplicated; Z79.82 Long term (current) use of aspirin; Z87.891 Personal history of nicotine dependence

== ENCOUNTER → 2017-06-24 | Outpatient (CLI) | payer MEDICAID | LOC: FIMAGING 14:07 | PROVIDERS: ATTEND Physician Assistant Medical | DX: N64.4 Mastodynia (principal) ==

== ENCOUNTER 2017-08-12 10:06 | Emergency (ER) | payer MEDICAID ==
[2017-08-12 10:14] VITALS: TEMP 98.6
--- NOTE | 2017-08-12 10:22 | CPEKG ---
Heart Rate: 106 RR Interval: 566 P-R Interval: 176 QRSD Interval: 88 QT Interval: 360 QTC Interval: 479 P [place]: 68 QRS [place]: -57 T Wave [place]: 46 EKG Severity - ABNORMAL ECG - EKG Impression: SINUS TACHYCARDIA EKG Impression: LEFT ANTERIOR FASCICULAR BLOCK EKG Impression: ABNRM R PROG, CONSIDER ASMI OR LEAD PLACEMENT Electronically Signed By: Melquiades Wasserman 12-Aug-2017 13:51:09
[2017-08-12 10:46] LABS: PLATELET COUNT 290 10^3/uL (150-400)
--- NOTE | 2017-08-12 10:54 | EDPHY ---
H & P Time Seen by Provider: 08/12/17 10:26 HPI/ROS: CHIEF COMPLAINT: Tachycardia, chest pain HISTORY OF PRESENT ILLNESS: 42-year-old female presents to the emergency department by ambulance with feelings of tachycardia and pain in her chest. 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 She has had this feeling in the past and typically or resolved on its own however this has continued. She does have associated mild chest pain this. Patient has a history of 4 previous pulmonary embolisms. She states that this was after surgeries each time. She was on Xarelto and stop this after consulting with her doctor 6 months ago. I she does not feel short of breath. No headache. No neck or back pain. No calf pain or swelling. No recent travel. REVIEW OF SYSTEMS: Constitutional: No fever, no chills. Eyes: No double or blurry vision. ENT: No sore throat. Respiratory: No cough, no shortness of breath. Cardiac: chest pain. Gastrointestinal: No abdominal pain, vomiting or diarrhea. Genitourinary: No dysuria. Musculoskeletal: No neck or back pain. Skin: No rashes. Neurological: No headache. 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 Tachycardic with a heart rate of 115. Eyes: Pupils equal and round. Extraocular motions are all intact. ENT: Mouth: Mucous membranes moist. Respiratory: No wheezing, rhonchi, or rales, lungs are clear to auscultation. Cardiovascular: Regular rate and rhythm. Tachycardic. No murmur. Gastrointestinal: Abdomen is soft and nontender, no masses, no rebound or guarding, bowel sounds normal. Neurological: Alert and oriented x 3, cranial nerves II through XII grossly intact Skin: Warm and dry, no rashes. Musculoskeletal: Nontender to palpate along the cervical, thoracic or lumbar spine. Neck is supple. Extremities: Full range of motion and no peripheral edema. Mild right-sided calf pain with palpation. No swelling. No pedal edema. Psychiatric: Patient is oriented X 3, there is no agitation. Constitutional: Initial Vital Signs Temperature (C) 37 C 08/12/17 10:07 Heart Rate 110 H 08/12/17 10:07 Respiratory Rate 18 08/12/17 10:07 Blood Pressure 144/102 H 08/12/17 10:07 O2 Sat (%) 97 08/12/17 10:07 O2 Delivery Mode Room Air Allergies/Adverse Reactions: hydrocodone bitartrate [From Vicodin] Allergy (Intermediate, Verified 06/17/17 17:07) itching, sob Penicillins Allergy (Mild, Verified 06/17/17 17:07) Unknown pneumococcal vaccine [Pneumococcal Vaccine] Allergy (Verified 06/17/17 17:07) FLU VACCINE Allergy (Uncoded 06/17/17 17:07) Home Medications: Medication Instructions Recorded Lexapro 06/17/17 Medical Decision Making - Diagnostics Imaging Results: Imaging Impressions Chest/Thorax CTA 08/12/17 10:51 Impression: 1. No visible pulmonary embolus. 2. Scattered small benign pulmonary nodules. 3. Additional findings as above. Findings discussed with Destinee Ferris PA-C, 08/12/2017 at 1252 hours. Imaging: Discussed imaging studies w/ call worker person Radiologist, I viewed and interpreted images myself ED Course/Re-evaluation: 42-year-old female presents to the emergency department with tachycardia. The patient has a history of pulmonary embolism x4. Given her history of tachycardia and symptoms of chest pain, I elected not to do D-dimer and rather do CT pulmonary angiogram for concerns of recurring pulmonary embolism. The case was discussed with Dr. Melquiades Wasserman, secondary supervising physician, who did not directly evaluate the patient but agrees with treatment and plan. CT pulmonary angiogram reveals no evidence of pulmonary embolism. Patient was treated with IV normal saline. She was reassured that she did not have evidence of PE on CT pulmonary angiogram. Patient was encouraged to have close follow-up with her primary care provider and was also given referral to appeals coordinator as she has had these intermittent symptoms of tachycardia. I encouraged her to avoid any kind stimulants. She should return to the emergency department if she develops pain in her chest, difficulty breathing, recurring tachycardia or any other concerns. Differential Diagnosis: Including but not limited to pulmonary embolism, myocardial ischemia, pulmonary embolus, chest wall pain, pleural inflammation and pulmonary infectious causes. - Data Points Laboratory Results: Laboratory Results 08/12/17 10:25 08/12/17 10:25 08/12/17 08/12/17 08/12/17 10:25 10:25 10:25 WBC 5.72 10^3/uL 10^3/uL (3.80-9.50) RBC 4.70 10^6/uL 10^6/uL (4.18-5.33) Hgb 14.8 g/dL g/dL (12.6-16.3) Hct 42.2 % % (38.0-47.0) MCV 89.8 fL fL (81.5-99.8) MCH 31.5 pg pg (27.9-34.1) MCHC 35.1 g/dL g/dL (32.4-36.7) RDW 12.3 % % (11.5-15.2) Plt Count 290 10^3/uL 10^3/uL (150-400) MPV 9.7 fL fL (8.7-11.7) Neut % (Auto) 57.0 % % (39.3-74.2) Lymph % (Auto) 30.9 % % (15.0-45.0) [place] % (Auto) 9.1 % % (4.5-13.0) Eos % (Auto) 2.1 % % (0.6-7.6) Baso % (Auto) 0.7 % % (0.3-1.7) Nucleat RBC Rel Count 0.0 % % (0.0-0.2) Absolute Neuts (auto) 3.26 10^3/uL 10^3/uL (1.70-6.50) Absolute Lymphs (auto) 1.77 10^3/uL 10^3/uL (1.00-3.00) Absolute Monos (auto) 0.52 10^3/uL 10^3/uL (0.30-0.80) Absolute Eos (auto) 0.12 10^3/uL 10^3/uL (0.03-0.40) Absolute Basos (auto) 0.04 10^3/uL 10^3/uL (0.02-0.10) Absolute Nucleated RBC 0.00 10^3/uL 10^3/uL (0-0.01) Immature Gran % 0.2 % % (0.0-1.1) Immature Gran # 0.01 10^3/uL 10^3/uL (0.00-0.10) Sodium 142 mEq/L mEq/L (135-145) Potassium 4.0 mEq/L mEq/L (3.5-5.2) Chloride 101 mEq/L mEq/L (97-110) Carbon Dioxide 28 mEq/l mEq/l (22-31) Anion Gap 13 mEq/L mEq/L (8-16) BUN 10 mg/dL mg/dL (7-23) Creatinine 0.7 mg/dL mg/dL (0.6-1.0) Estimated GFR > 60 Glucose 74 mg/dL mg/dL (70-100) Calcium 9.5 mg/dL mg/dL (8.5-10.4) Troponin I < 0.012 ng/mL ng/mL (0.000-0.034) Beta HCG, Qual NEGATIVE Medications Given: Discontinued Medications Sodium Chloride (Ns) 1,000 mls @ 0 mls/hr IV ONCE ONE PRN Reason: Wide Open Stop: 08/12/17 11:11 Last Admin: 08/12/17 11:12 Dose: 1,000 mls Departure - Departure Disposition: Home, Routine, Self-Care Clinical Impression: Tachycardia Chest pain Qualifiers: Chest pain type: unspecified Qualified Code(s): R07.9 - Chest pain, unspecified Condition: Good Instructions: Chest Pain (ED), Tachycardia (ED) Additional Instructions: Follow up with appeals coordinator as discussed. There is no evidence of pulmonary embolism seen on CT scan today. Return to the emergency department if you feel shortness of breath, if he developed pain in your chest, or if you feel worse in any way. Referrals: Dirk Goddard MD [Medical Doctor] - 2-3 days, call for appt. (Safety Net Maker on- call)
[2017-08-12 11:07] VITALS: O2SAT 96
[2017-08-12] MEDS ORDERED: NS 1,000 ML IV ONE (11:10)
[2017-08-12] MEDS ORDERED: IOPAMIDOL (ISOVUE 370) 100 ML BTL IV ONE (11:39)
[2017-08-12 13:43] VITALS: BP 140/107; PULSE 107; RESP 16
== END 2017-08-12 13:42 | disposition home or self-care (01) ==
LOC: EDUNIT#
DX: R00.0 Tachycardia, unspecified (principal); R07.9 Chest pain, unspecified
CPT/HCPCS: Q9967

== ENCOUNTER 2018-03-13 00:02 | Emergency (ER) | payer MEDICAID ==
[2018-03-13] MEDS ORDERED: NS 1,000 ML IV ONE (00:28)
--- NOTE | 2018-03-13 00:36 | EDPHY ---
H & P Stated Complaint: SOB, Dizzy, Hx PE Time Seen by Provider: 03/13/18 00:24 HPI/ROS: CHIEF COMPLAINT: Mild shortness of breath HISTORY OF PRESENT ILLNESS: The patient is a 42-year-old female who presents to the emergency department complaining of mild shortness of breath that began about 3 hr ago. She has a history of pulmonary embolism x4. She states however that the previous episodes have been provoked by surgery and so they decided to take her off of Xarelto last year. She states that 1 of those diagnoses was D-dimer negative but CT positive. She states that the symptoms feel similar. No recent fevers cough or illness. No chest pain. No pleurisy. No leg pain or swelling. No recent travel. No abdominal symptoms. It is not worsened by exertion. She was resting when it began. She states she did have some mild flank pain and aches earlier today and wants to be checked for urine infection. No frequency or dysuria. She has a history of hysterectomy for endometriosis. Severity: Moderate Modifying factors: None REVIEW OF SYSTEMS: Constitutional: denies: chills, fever, recent illness, recent injury EENTM: denies: blurred vision, double vision, nose congestion Respiratory: See HPI Cardiac: denies: chest pain, irregular heart rate, lightheadedness, palpitations Gastrointestinal/Abdominal: denies: abdominal pain, diarrhea, nausea, vomiting, blood streaked stools Genitourinary: denies: dysuria, frequency, hematuria, pain Musculoskeletal: denies: joint pain, muscle pain Skin: denies: lesions, rash, jaundice, bruising Neurological: denies: headache, numbness, paresthesia, tingling, dizziness, weakness Hematologic/Lymphatic: denies: blood clots, easy bleeding, easy bruising Immunologic/allergic: denies: HIV/AIDS, transplant 10 systems reviewed and negative except as noted EXAM: GENERAL: Well-appearing, well-nourished and in no acute distress. HEAD: Atraumatic, normocephalic. EYES: Pupils equal round and reactive to light, extraocular movements intact, sclera anicteric, conjunctiva are normal. ENT: TMs normal, nares patent, oropharynx clear without exudates. Moist mucous membranes. NECK: Normal range of motion, supple without lymphadenopathy or JVD. LUNGS: Breath sounds clear to auscultation bilaterally and equal. No wheezes rales or rhonchi. HEART: Regular rate and rhythm without murmurs, rubs or gallops. ABDOMEN: Soft, nontender, normoactive bowel sounds. No guarding, no rebound. No masses appreciated. BACK: No CVA tenderness, no spinal tenderness, step-offs or deformities EXTREMITIES: Normal range of motion, no pitting or edema. No clubbing or cyanosis. NEUROLOGICAL: Cranial nerves II through XII grossly intact. Normal speech, normal gait. 5/5 strength, normal movement in all extremities, normal sensation , normal reflexes PSYCH: Normal mood, normal affect. SKIN: Warm, dry, normal turgor, no visible rashes or lesions. Source: Patient Exam Limitations: No limitations - Personal History LMP (Females 10-55): Hysterectomy Current Tetanus/Diphtheria Vaccine: Yes Current Tetanus Diphtheria and Acellular Pertussis (TDAP): Yes Tetanus Vaccine Date: 2006 - Medical/Surgical History Hx Asthma: Yes Hx Chronic Respiratory Disease: No Hx Diabetes: No Hx Cardiac Disease: No Hx Renal Disease: No Hx Cirrhosis: No Hx Alcoholism: No Hx HIV/AIDS: No Hx Splenectomy or Spleen Trauma: No Other PMH: Anxiety. PE's. Guillan-[place], endometriosis, hysterectomy - Family History Significant Family History: Other (Mom also with multiple PE's) - Social History Smoking Status: Never smoked Alcohol Use: Sober Drug Use: None Constitutional: Initial Vital Signs Temperature (C) 36.8 C 03/13/18 00:05 Heart Rate 89 03/13/18 00:05 Respiratory Rate 16 03/13/18 00:05 Blood Pressure 156/87 H 03/13/18 00:05 O2 Sat (%) 99 03/13/18 00:05 O2 Delivery Mode Room Air Allergies/Adverse Reactions: hydrocodone bitartrate [From Vicodin] Allergy (Intermediate, Verified 03/13/18 00:04) itching, sob Penicillins Allergy (Mild, Verified 03/13/18 00:04) Unknown pneumococcal vaccine [Pneumococcal Vaccine] Allergy (Verified 03/13/18 00:04) FLU VACCINE Allergy (Uncoded 03/13/18 00:04) Home Medications: Medication Instructions Recorded Lexapro 06/17/17 Medical Decision Making - Diagnostics EKG Interpretation: An EKG obtained and was read and documented in trace view. Please see trace view for full reading and report. Sinus rhythm, no acute ischemic changes Imaging: Discussed imaging studies w/ dynamiter Radiologist ED Course/Re-evaluation: 2:00 a.m. the patient is relieved with the test results. She is feeling much better. She is reassured. We discussed other possible etiologies. I do not have a specific diagnosis at this time and she understands that. She declines further testing and is eager to go home. We discussed indications for returning. Differential Diagnosis: Partial list of the Differential diagnosis considered include but were not limited to; anxiety, bronchitis, PE and although unlikely based on the history and physical exam, I also considered dissection, pneumothorax, pneumonia, acute coronary disease. I discussed these differential diagnoses and the plan with the patient as well as the usual and expected course. The patient understands that the diagnosis is provisional and that in medicine we are not always correct and that further workup is often warranted. Usual and customary warnings were given. All of the patient's questions were answered. The patient was instructed to return to the emergency department should the symptoms at all worsen or return, otherwise to followup with the physician as we discussed. - Data Points Laboratory Results: Laboratory Results 03/13/18 00:22 03/13/18 00:22 03/13/18 03/13/18 03/13/18 00:34 00:22 00:22 WBC RBC Hgb Hct MCV MCH MCHC RDW Plt Count MPV Neut % (Auto) Lymph % (Auto) [place] % (Auto) Eos % (Auto) Baso % (Auto) Nucleat RBC Rel Count Absolute Neuts (auto) Absolute Lymphs (auto) Absolute Monos (auto) Absolute Eos (auto) Absolute Basos (auto) Absolute Nucleated RBC Immature Gran % Immature Gran # PT INR APTT Sodium 140 mEq/L mEq/L (135-145) Potassium 3.9 mEq/L mEq/L (3.3-5.0) Chloride 105 mEq/L mEq/L (97-110) Carbon Dioxide 24 mEq/l mEq/l (22-31) Anion Gap 11 mEq/L mEq/L (6-14) BUN 10 mg/dL mg/dL (7-23) Creatinine 0.7 mg/dL mg/dL (0.6-1.0) Estimated GFR > 60 Glucose 102 mg/dL H mg/dL (70-100) Calcium 9.8 mg/dL mg/dL (8.5-10.4) Total Bilirubin 0.3 mg/dL mg/dL (0.1-1.4) Conjugated Bilirubin 0.2 mg/dL mg/dL (0.0-0.5) Unconjugated Bilirubin 0.1 mg/dL mg/dL (0.0-1.1) AST 25 IU/L IU/L (14-46) ALT 27 IU/L IU/L (9-52) Alkaline Phosphatase 36 IU/L L IU/L (38-126) POC Troponin I 0.00 ng/mL ng/mL (0.00-0.08) Total Protein 7.4 g/dL g/dL (6.3-8.2) Albumin 4.3 g/dL g/dL (3.5-5.0) Urine Color COLORLESS Urine Appearance CLEAR Urine pH 7.0 (5.0-7.5) Ur Specific [place] 1.001 L (1.002-1.030) Urine Protein NEGATIVE (NEGATIVE) Urine Ketones NEGATIVE (NEGATIVE) Urine Blood NEGATIVE (NEGATIVE) Urine Nitrate NEGATIVE (NEGATIVE) Urine Bilirubin NEGATIVE (NEGATIVE) Urine Urobilinogen NEGATIVE EU EU (0.2-1.0) Ur Leukocyte Esterase NEGATIVE (NEGATIVE) Urine RBC NONE SEEN /hpf /hpf (0-3) Urine WBC 0-1 /hpf /hpf (0-3) Ur Epithelial Cells TRACE /lpf /lpf (NONE-1+) Urine Bacteria TRACE /hpf H /hpf (NONE SEEN) Urine Glucose NEGATIVE (NEGATIVE) 03/13/18 03/13/18 00:22 00:22 WBC 9.86 10^3/uL H 10^3/uL (3.80-9.50) RBC 4.61 10^6/uL 10^6/uL (4.18-5.33) Hgb 14.6 g/dL g/dL (12.6-16.3) Hct 42.0 % % (38.0-47.0) MCV 91.1 fL fL (81.5-99.8) MCH 31.7 pg pg (27.9-34.1) MCHC 34.8 g/dL g/dL (32.4-36.7) RDW 12.3 % % (11.5-15.2) Plt Count 259 10^3/uL 10^3/uL (150-400) MPV 9.3 fL fL (8.7-11.7) Neut % (Auto) 73.4 % % (39.3-74.2) Lymph % (Auto) 18.7 % % (15.0-45.0) [place] % (Auto) 6.6 % % (4.5-13.0) Eos % (Auto) 0.8 % % (0.6-7.6) Baso % (Auto) 0.3 % % (0.3-1.7) Nucleat RBC Rel Count 0.0 % % (0.0-0.2) Absolute Neuts (auto) 7.24 10^3/uL H 10^3/uL (1.70-6.50) Absolute Lymphs (auto) 1.84 10^3/uL 10^3/uL (1.00-3.00) Absolute Monos (auto) 0.65 10^3/uL 10^3/uL (0.30-0.80) Absolute Eos (auto) 0.08 10^3/uL 10^3/uL (0.03-0.40) Absolute Basos (auto) 0.03 10^3/uL 10^3/uL (0.02-0.10) Absolute Nucleated RBC 0.00 10^3/uL 10^3/uL (0-0.01) Immature Gran % 0.2 % % (0.0-1.1) Immature Gran # 0.02 10^3/uL 10^3/uL (0.00-0.10) PT 13.9 SEC SEC (12.0-15.0) INR 1.05 (0.83-1.16) APTT 24.3 SEC SEC (23.0-38.0) Sodium Potassium Chloride Carbon Dioxide Anion Gap BUN Creatinine Estimated GFR Glucose Calcium Total Bilirubin Conjugated Bilirubin Unconjugated Bilirubin AST ALT Alkaline Phosphatase POC Troponin I Total Protein Albumin Urine Color Urine Appearance Urine pH Ur Specific [place] Urine Protein Urine Ketones Urine Blood Urine Nitrate Urine Bilirubin Urine Urobilinogen Ur Leukocyte Esterase Urine RBC Urine WBC Ur Epithelial Cells Urine Bacteria Urine Glucose Medications Given: Discontinued Medications Sodium Chloride (Ns) 1,000 mls @ 0 mls/hr IV EDNOW ONE; Wide Open PRN Reason: Protocol Stop: 03/13/18 00:29 Last Admin: 03/13/18 00:37 Dose: 1,000 mls Point of Care Test Results: Chemistry 03/13/18 00:34 POC Troponin I 0.00 ng/mL ng/mL (0.00-0.08) Departure - Departure Disposition: Home, Routine, Self-Care Clinical Impression: Shortness of breath Condition: Fair Instructions: Dyspnea (ED) Referrals: NONE *PRIMARY CARE P,. [Primary Care Provider] - As per Instructions Shlomo Saldana MD [Medical Doctor] - 2-3 days, if not improved
[2018-03-13 00:46] LABS: PLATELET COUNT 259 10^3/uL (150-400)
[2018-03-13 00:57] LABS: INR 1.05 (0.83-1.16); PROTIME(PATIENT) 13.9 SEC (12.0-15.0)
--- NOTE | 2018-03-13 01:02 | CPEKG ---
Test Reason : OPEN Blood Pressure : / mmHG Vent. Rate : 077 BPM Atrial Rate : 077 BPM P-R Int : 148 ms QRS Dur : 088 ms QT Int : 399 ms P-R-T Axes : 068 -14 053 degrees QTc Int : 452 ms Sinus rhythm Confirmed by Suleiman Wilson ([id number]) on 03/13/2018 1:01:42 AM Referred By: Confirmed By:Suleiman Wilson
[2018-03-13] MEDS ORDERED: IOPAMIDOL (ISOVUE 370) 100 ML BTL IV ONE (01:23)
[2018-03-13 01:58] VITALS: BP 127/89
== END 2018-03-13 02:08 | disposition home or self-care (01) ==
DX: R06.02 Shortness of breath (principal); E86.9 Volume depletion, unspecified; Z86.711 Personal history of pulmonary embolism
CPT/HCPCS: 84484-PO; Q9967

== ENCOUNTER 2018-04-30 17:14 | Emergency (ER) | payer MEDICAID ==
--- NOTE | 2018-04-30 17:29 | EDPHY ---
H & P Stated Complaint: Headache, fever, neck stiffness Time Seen by Provider: 04/30/18 17:29 HPI/ROS: CHIEF COMPLAINT: Headache, fever, neck stiffness HISTORY OF PRESENT ILLNESS: The patient is referred to the emergency department for evaluation of headache, fever neck stiffness. The patient's symptoms have been present for the past week. She was seen at urgent care several days ago and prescribed azithromycin. She took that medication with some improvement of her symptoms. She stop taking her antibiotics yesterday in her headache, fever neck stiffness has returned. The patient denies any history of fall or trauma. She denies any acute focal numbness or weakness. She denies any visual disturbance. The patient does have a remote history of pulmonary embolism. She is not currently anticoagulated. REVIEW OF SYSTEMS: A comprehensive 10 point review of systems is otherwise negative aside from elements mentioned in the history of present illness. Source: Patient Exam Limitations: No limitations - Personal History LMP (Females 10-55): Hysterectomy Current Tetanus/Diphtheria Vaccine: Yes Tetanus Vaccine Date: 2006 - Medical/Surgical History Hx Asthma: Yes Hx Chronic Respiratory Disease: No Hx Diabetes: No Hx Cardiac Disease: No Hx Renal Disease: No Hx Cirrhosis: No Hx Alcoholism: No Hx HIV/AIDS: No Hx Splenectomy or Spleen Trauma: No Other PMH: Anxiety. PE's. Guillan-[place], endometriosis, hysterectomy - Social History Smoking Status: Never smoked - Physical Exam Exam: General Appearance: Alert, no distress Eyes: Pupils equal and round no pallor or injection ENT, Mouth: Mucous membranes moist Respiratory: There are no retractions, lungs are clear to auscultation Cardiovascular: Regular rate and rhythm Gastrointestinal: Abdomen is soft and nontender, no masses, bowel sounds normal Neurological: A&O, normal motor function, normal sensory exam, normal cranial nerves Skin: Warm and dry, no rashes Musculoskeletal: Patient does have meningeal symptoms noted with forward flexion. Extremities: symmetrical, full range of motion Constitutional: Initial Vital Signs Temperature (C) 36.7 C 04/30/18 17:16 Heart Rate 98 04/30/18 17:16 Respiratory Rate 18 04/30/18 17:16 Blood Pressure 137/106 H 04/30/18 17:16 O2 Sat (%) 98 04/30/18 17:16 O2 Delivery Mode Room Air Allergies/Adverse Reactions: hydrocodone bitartrate [From Vicodin] Allergy (Intermediate, Verified 04/30/18 17:20) itching, sob Penicillins Allergy (Mild, Verified 04/30/18 17:20) Unknown pneumococcal vaccine [Pneumococcal Vaccine] Allergy (Verified 04/30/18 17:20) FLU VACCINE Allergy (Uncoded 04/30/18 17:20) Home Medications: Medication Instructions Recorded Lexapro 06/17/17 Medical Decision Making Procedures: Procedure: Lumbar puncture. Indication: headache After verbal informed consent from patient explaining the risks including infection, bleeding, and neurologic damage, a lumbar puncture was performed after the patient was prepped and draped in the usual fashion. The back was anesthetized with 1% lidocaine. Approximately 4 cc of clear fluid was obtained. Opening pressure was not obtained. There were no complications. The procedure was performed by myself. ED Course/Re-evaluation: The patient presents the ED for evaluation of headache and neck stiffness in the setting of a recent upper respiratory infection. The patient was noted to be neurologically intact. She did exhibit symptoms of meningismus with forward flexion. We discussed the risks and benefits of lumbar puncture to evaluate for a CHIEF ADMINISTRATIVE OFFICER infection. Given her normal neurologic examination and previously healthy state a CT scan was not performed prior to lumbar puncture. Lumbar puncture was performed by myself without complication at 6:30 p.m.. Reviewed the patient's CBC and serum chemistries are unremarkable. The patient's lumbar puncture demonstrates no evidence of meningitis. The patient was treated with IV Toradol. Re-evaluated the patient at 8:00 p.m. And reviewed her lumbar puncture results. At this point time I do feel she is experiencing a viral syndrome. I see no indication for antibiotics. She has been advised to take Tylenol and ibuprofen as needed for management of her symptoms. The patient has been given post lumbar puncture aftercare instructions. Differential Diagnosis: Differential diagnosis considered includes viral syndrome, bacterial meningitis , viral meningitis, mononucleosis - Data Points Laboratory Results: Laboratory Results 04/30/18 17:55 04/30/18 17:55 04/30/18 04/30/18 04/30/18 18:37 17:55 17:55 WBC 6.19 10^3/uL 10^3/uL (3.80-9.50) RBC 4.62 10^6/uL 10^6/uL (4.18-5.33) Hgb 14.7 g/dL g/dL (12.6-16.3) Hct 41.2 % % (38.0-47.0) MCV 89.2 fL fL (81.5-99.8) MCH 31.8 pg pg (27.9-34.1) MCHC 35.7 g/dL g/dL (32.4-36.7) RDW 12.2 % % (11.5-15.2) Plt Count 259 10^3/uL 10^3/uL (150-400) MPV 9.1 fL fL (8.7-11.7) Neut % (Auto) 56.4 % % (39.3-74.2) Lymph % (Auto) 33.1 % % (15.0-45.0) [place] % (Auto) 7.6 % % (4.5-13.0) Eos % (Auto) 2.1 % % (0.6-7.6) Baso % (Auto) 0.6 % % (0.3-1.7) Nucleat RBC Rel Count 0.0 % % (0.0-0.2) Absolute Neuts (auto) 3.49 10^3/uL 10^3/uL (1.70-6.50) Absolute Lymphs (auto) 2.05 10^3/uL 10^3/uL (1.00-3.00) Absolute Monos (auto) 0.47 10^3/uL 10^3/uL (0.30-0.80) Absolute Eos (auto) 0.13 10^3/uL 10^3/uL (0.03-0.40) Absolute Basos (auto) 0.04 10^3/uL 10^3/uL (0.02-0.10) Absolute Nucleated RBC 0.00 10^3/uL 10^3/uL (0-0.01) Immature Gran % 0.2 % % (0.0-1.1) Immature Gran # 0.01 10^3/uL 10^3/uL (0.00-0.10) Sodium 137 mEq/L mEq/L (135-145) Potassium 3.5 mEq/L mEq/L (3.3-5.0) Chloride 105 mEq/L mEq/L (97-110) Carbon Dioxide 24 mEq/l mEq/l (22-31) Anion Gap 8 mEq/L mEq/L (6-14) BUN 10 mg/dL mg/dL (7-23) Creatinine 0.7 mg/dL mg/dL (0.6-1.0) Estimated GFR > 60 Glucose 89 mg/dL mg/dL (70-100) Calcium 9.7 mg/dL mg/dL (8.5-10.4) CSF Tube Number 4 CSF Appearance CLEAR (CLEAR) CSF Color COLORLESS (COLORLESS) CSF Supernatant COLORLESS (COLORLESS) CSF WBC 0 /mm3 /mm3 (0-5) CSF RBC 2 /mm3 H /mm3 (0-0) CSF Glucose 49 mg/dL L mg/dL (50-75) CSF Total Protein 68 mg/dL H mg/dL (12-60) Microbiology Results: MICROBIOLOGY 04/30/18 18:37 Cerebral Spinal Fluid Gram Stain - Final Medications Given: Discontinued Medications Ketorolac Tromethamine (Toradol) 30 mg IVP EDNOW ONE Stop: 04/30/18 18:39 Last Admin: 04/30/18 18:57 Dose: 30 mg Lorazepam (Ativan Injection) 1 mg IVP EDNOW ONE Stop: 04/30/18 18:01 Last Admin: 04/30/18 18:03 Dose: 1 mg Departure - Departure Disposition: Home, Routine, Self-Care Clinical Impression: Viral syndrome Condition: Good Instructions: Viral Syndrome (ED) Additional Instructions: 1. Your spinal tap demonstrates no evidence of meningitis. 2. Please continue Tylenol and ibuprofen as needed for management of your symptoms. 3. Please return to the ED for markedly worsening symptoms or other concerns. 4. Pressure to drink plenty of fluids and get rest. Referrals: Krystin Solares, PAC [Primary Care Provider] - As per Instructions
[2018-04-30] MEDS ORDERED: LORazepam 2 MG/ML INJ ONE (17:59)
[2018-04-30] MEDS ORDERED: LORazepam 2 MG/ML INJ IVP ONE (18:00)
[2018-04-30 18:07] LABS: PLATELET COUNT 259 10^3/uL (150-400)
[2018-04-30] MEDS ORDERED: KETOROLAC 30 MG/1 ML SDV IVP ONE (18:38)
[2018-04-30 20:05] VITALS: BP 129/87
== END 2018-04-30 20:05 | disposition home or self-care (01) ==
PROC: 009U3ZX Drainage of Spinal Canal, Percutaneous Approach, Diagnostic (ICD-10-PCS; principal; 2018-04-30)
DX: R50.9 Fever, unspecified (principal); B34.9 Viral infection, unspecified; Z86.711 Personal history of pulmonary embolism
CPT/HCPCS: 96374; J1885; J2060

== ENCOUNTER → 2018-06-30 | Outpatient (CLI) | payer MEDICAID | LOC: FIMAGING 18:04 | PROVIDERS: ATTEND Physician Assistant Medical | DX: R90.82 White matter disease, unspecified (principal); G43.719 Chronic migraine without aura, intractable, without status migrainosus ==

== ENCOUNTER → 2018-08-31 | Outpatient (CLI) | payer MEDICAID ==
[~2018-08-31] MED LIST: IOPAMIDOL (ISOVUE 370) 100 ML BTL IV ONE
== END ==
LOC: FIMAGING 09:38
PROVIDERS: ATTEND Physician Assistant Medical
DX: G43.719 Chronic migraine without aura, intractable, without status migrainosus (principal)
CPT/HCPCS: Q9967

== ENCOUNTER → 2018-09-05 | Outpatient (CLI) | payer MEDICAID | LOC: FIMAGING 15:02 | DX: Z12.31 Encounter for screening mammogram for malignant neoplasm of breast (principal); Z80.3 Family history of malignant neoplasm of breast ==